=== PATIENT | female | born 1960 | race Caucasian/White ===

== ENCOUNTER 2018-05-18 08:42 | Outpatient (CLI) | payer BC ==
--- NOTE | 2018-05-18 14:14 | MMO ---
MAMMOGRAM DIGITAL SCREENING BILATERAL: DATE: 05/18/18 HISTORY: 57-year-old female for routine bilateral screening mammogram. COMPARISON: 06/02/16 TECHNIQUE: Digital mammographic views. Computer-aided detection (CAD) utilized. FINDINGS: There are scattered areas of fibroglandular density. There is no evidence of suspicious mass, suspicious calcifications, or architectural distortion. The re is no significant interval change since the prior mammogram. IMPRESSION: 1) BIRADS 1- Negative. 2) Recommendation: routine bilateral annual screening mammogram (unless the patient develops suspicio us clinical findings that would warrant earlier imaging follow up). alfonzo [] POS: [facility]
== END 2018-05-18 08:43 | disposition home or self-care (01) ==
LOC: SCSMAMMO 08:42
PROVIDERS: ATTEND Family Medicine
DX: Z12.31 Encounter for screening mammogram for malignant neoplasm of breast (principal)
CPT/HCPCS: 77067

== ENCOUNTER 2018-07-09 16:05 | Outpatient (CLI) | payer BC ==
--- NOTE | 2018-07-09 18:37 | RAD ---
SACROILIAC JOINTS THREE VIEWS: HISTORY: Chronic back and bilateral hip pain. FINDINGS: The sacroiliac joints are patent and symmetric. No erosive or destructive changes. IMPRESSION: Unremarkable three views of the sacroiliac joints. POS: [facility]
== END 2018-07-09 16:06 | disposition home or self-care (01) ==
LOC: SCSRAD 16:05
PROVIDERS: ATTEND Family Medicine
DX: M54.5 Low back pain (principal)
CPT/HCPCS: 72202

== ENCOUNTER 2019-05-25 10:29 | Emergency (ER) | payer BC | END 2019-05-25 11:10 | disposition home or self-care (01) | LOC: SCSER 10:29 | DX: K59.09 Other constipation (principal) | CPT/HCPCS: 36415; 80061; 82043; 83036; 84439; 84443; 85027; 99283 ==

== ENCOUNTER 2019-05-27 12:34 | Outpatient (CLI) | payer BC ==
--- NOTE | 2019-05-27 12:57 | RAD ---
EXAM: 2 views abdomen PROVIDED CLINICAL HISTORY: Constipation COMPARISON: None FINDINGS: Visualized lung bases appear clear. Bowel gas pattern is nonspecific. No radiographically apparent ur inary tract calculi. No evidence for pneumoperitoneum. IMPRESSION: Nonspecific bowel gas pattern.
== END 2019-05-27 12:35 | disposition home or self-care (01) ==
LOC: SCSRAD 12:34
PROVIDERS: ATTEND Family Medicine
DX: K59.01 Slow transit constipation (principal)
CPT/HCPCS: 74019

== ENCOUNTER 2022-11-21 14:31 | Outpatient (CLI) | payer BC | END 2022-11-21 14:32 | disposition home or self-care (01) | LOC: SCSRAD 14:31 | PROVIDERS: ATTEND Nurse Practitioner Family | DX: M25.552 Pain in left hip (principal); M79.18 Myalgia, other site; M16.12 Unilateral primary osteoarthritis, left hip | CPT/HCPCS: 72170 ==

== ENCOUNTER 2025-06-23 14:53 | Outpatient (CLI) | payer BC, OTHER | END 2025-06-23 14:54 | disposition home or self-care (01) | LOC: SCSRAD 14:53 | PROVIDERS: ATTEND Internal Medicine Rheumatology | DX: M25.551 Pain in right hip (principal); M25.552 Pain in left hip | CPT/HCPCS: 72170 ==